=== PATIENT | female | born 1970 | race Caucasian/White ===

== ENCOUNTER 2023-06-20 14:20 | Outpatient (CLI) | payer BC | END 2023-06-20 14:21 | disposition home or self-care (01) | LOC: RAD 14:20 | PROVIDERS: ATTEND Internal Medicine Rheumatology | DX: M79.671 Pain in right foot (principal); M79.672 Pain in left foot ==

== ENCOUNTER 2023-08-01 12:58 | Outpatient (CLI) | payer BC | END 2023-08-01 12:59 | disposition home or self-care (01) | LOC: ULT 12:58 | PROVIDERS: ATTEND Psychiatry & Neurology Neurology | DX: G62.9 Polyneuropathy, unspecified (principal); I99.8 Other disorder of circulatory system | CPT/HCPCS: 93923; 93970 ==